=== PATIENT | female | born 1990 | race African-American/Black ===

== ENCOUNTER 2025-07-25 01:00 | Emergency (ER) | payer SELFPAY ==
[~2025-07-25] VITALS: Ht 160 cm; Wt 69.0 kg
[2025-07-25 01:44] VITALS: O2SAT 100
[2025-07-25] MEDS: KETOROLAC 15MG/ML VIAL IM ONE (02:29)
[2025-07-25] MEDS ORDERED: OFLO5DRO4 LEFT EAR (02:31)
[2025-07-25 02:47] VITALS: BP 107/81; PULSE 75; RESP 16; TEMP 36.8; O2SAT 100
== END 2025-07-25 02:48 | disposition home or self-care (01) ==
LOC: ER 01:00
DX: H60.92 Unspecified otitis externa, left ear (principal); J45.909 Unspecified asthma, uncomplicated
CPT/HCPCS: 99283; 81025; 96372; J1885